=== PATIENT | female | born 1970 | race Caucasian/White ===

== ENCOUNTER → 2018-03-13 08:22 | Outpatient (CLI) | payer BC, SELFPAY ==
--- NOTE | 2018-03-13 08:29 | RAD_ITS ---
STUDY: X-RAY - LEFT TIBIA AND FIBULA REASON FOR EXAM: Female, 47 years old. History of injury. TECHNIQUE: AP and lateral view(s) of the tibia and fibula were obtained. COMPARISON: None. FINDINGS: Normal visualized tibia. Normal visualized fibula. The soft tissue structures are unremarkable. RAD/Tibia & Fibula 2 Views IMPRESSION: Normal x-ray examination of the tibia and fibula. Electronically Signed: Aurelio Whitehead MD at 10:39 EDT Tel [phone], Service support ,
--- NOTE | 2018-03-13 08:29 | RAD_ITS ---
STUDY: X-RAY - LEFT ANKLE REASON FOR EXAM: Female, 47 years old. INJURY MONTH AGO, NO PAIN UNLESS PALPIATED AROUND ANKLE TECHNIQUE: 3 view(s) of the ankle. COMPARISON: None. FINDINGS: Normal visualized distal tibia and fibula. Normal medial and lateral malleoli. Normal tibiotalar articulation and ankle mortise. Normal visualized talus and calcaneus. The visualized subtalar, talonavicular, calcaneocuboid and tarsal articulations are normal. The soft tissue structures are unremarkable. RAD/Ankle min 3 Views IMPRESSION: Normal x-ray examination of the ankle. Electronically Signed: Severo Carrillo MD at 16:52 EDT , Service support ,
== END ==
PROVIDERS: Family Provider Internal Medicine; PCP Internal Medicine; Visit Provider Internal Medicine
DX: M25.572 Pain in left ankle and joints of left foot (principal); W19.XXXA Unspecified fall, initial encounter; Y93.9 Activity, unspecified; Y92.9 Unspecified place or not applicable; Y99.9 Unspecified external cause status
CPT/HCPCS: 73590; 73610

== ENCOUNTER → 2018-09-12 16:40 | Outpatient (CLI) | payer BC, SELFPAY ==
[2018-09-17 15:55] LABS: HPV Reflexed? NOT INDICATED
== END ==
PROVIDERS: Family Provider Internal Medicine; PCP Internal Medicine; Visit Provider Obstetrics & Gynecology
DX: Z12.4 Encounter for screening for malignant neoplasm of cervix (principal)
CPT/HCPCS: 88175; G0145

== ENCOUNTER → 2019-01-08 10:54 | Outpatient (CLI) | payer BC, SELFPAY ==
--- NOTE | 2019-01-08 10:59 | VDLE_ITS ---
Reason For Study: LEG PAIN RIGHT LEFT CFV is compressible, spontaneous, phasic, GSV is normal. competent and demonstrates normal CFV is compressible, spontaneous, phasic, augmentation. competent, and demonstrates normal Procedure augmentation. Exam performed in department. FV is compressible, spontaneous, phasic, A preliminary report was called and/or faxed competent and demonstrates normal to Dr. Wiseman. augmentation. POP V is compressible, spontaneous, phasic, competent and demonstrates normal augmentation. T/P Trunk is compressible. PTV is compressible. LT PerV is compressible. Interpretation Summary Deep veins of the left lower extremity are patent and compressible segmentally. There is no evidence of left lower extremity deep vein thrombosis. Valvular competence appears intact within the proximal deep venous system on the left . The left greater saphenous vein appears patent and compressible segmentally. Ordering Physician: Brooke Wiseman Referring Physician: Brooke Wiseman Performed By: Carmen Gary RVT
== END ==
PROVIDERS: Family Provider Internal Medicine; PCP Internal Medicine; Referring Provider Internal Medicine; Visit Provider Internal Medicine
DX: M79.605 Pain in left leg (principal)
CPT/HCPCS: 93971

== ENCOUNTER → 2019-04-16 15:18 | Outpatient (CLI) | payer BC, SELFPAY ==
--- NOTE | 2019-04-16 15:21 | BI_ITS ---
MAMMOGRAPHY - BILATERAL SCREENING 3-D TOMOSYNTHESIS REASON FOR EXAM: Female, 48 years old. Bilateral Screening 3-D tomosynthesis PERTINENT HISTORY: No significant family history. TECHNIQUE: 2-D mammograms and 3-D Tomosynthesis of the breast (s) were performed. CAD was performed. COMPARISON: November 06, 2017, August 10, 2016 FINDINGS: The breast composition is almost entirely fat. Scattered benign calcifications are seen. No dense spiculated masses or suspicious microcalcifications are identified. No architectural distortion is identified. There is no skin thickening or retraction. There are stable lymph nodes. There has been no significant change since the prior study. BI/SCREEN MAMM (CAD) W/GORDO BILAT IMPRESSION: No mammographic signs of malignancy. Routine yearly mammograms recommended. ASSESSMENT CATEGORY: BIRADS Category 2: Benign. A letter regarding these results will be sent to the patient by the facility within 30 days. FOLLOW UP RECOMMENDATION: Yearly follow up mammogram recommended. (A) Approximately 10% of breast cancers are not detected by mammography. A normal mammogram should not delay biopsy of a clinically suspicious abnormality. Electronically Signed: Melvin Gallardo MD at 17:48 EDT , Service support ,
--- NOTE | 2019-04-16 15:25 | BD_ITS ---
STUDY: DUAL ENERGY X-RAY ABSORPTIOMETRY / DXA REASON FOR EXAM: Female, 48 years old. Early menopause. TECHNIQUE: Bone Mineral Density (BMD) measurements of lumbar spine and bilateral hips were obtained. COMPARISON: Comparison is made with prior study dated August 10, 2016. FINDINGS: Lumbar Spine (L1-L4): g/cm2 (0.983) / T-score (-1.6) / Z-score (-1.4) Findings are suggestive of osteopenia with a moderate fracture risk. Left Femur Total: g/cm2 (0.864) / T-score (-1.1) / Z-score (-0.8) Left Femoral Neck: g/cm2 (0.850) / T-score (-1.4) / Z-score (-0.7) Right Femur Total: g/cm2 (0.863) / T-score (-1.1) / Z-score (-0.8) Right Femoral Neck: g/cm2 (0.810) / T-score (-1.6) / Z-score (-1.0) The T-Scores on the most recent prior examination were: Lumbar Spine (L1-L4): There has been worsening of bone density since the previous examination. Left Femur Total: which represents a worsening of 0.1%. Right Femur Total: which represents an improvement of 1.1%. BD/Dexa Bone Density Study IMPRESSION: The patient is considered osteopenic as outlined below according to World Alexandre Organization (WHO) criteria with a moderate fracture risk. There has been worsening of bone density since the previous examination. Reference Information: The T-score is the number of standard deviations above or below the standard which is normal for young adults at their peak bone mineral density. The World Health Organization (WHO) interprets the T-scores as follows: Above -1 Normal bone density Between -1 and -2.5 Osteopenia Equal to / or below -2.5 Osteoporosis As a practical clinical guideline, osteopenia may be graded as follows: Mild -1 through -1.5 Moderate -1.6 through -2.0 Severe -2.1 through -2.4 The Z-score is the number of standard deviations above or below age-matched controls. A Z-score of less than -1.5 would be considered abnormal. References: 1. NIH Osteoporosis and Related Bone Diseases http://www.osteo.org 2. International Society for Clinical Densitometry http://www.iscd.org 3. National Osteoporosis Foundation http://www.nof.org Electronically Signed: Aurelio Whitehead, at 10:57 EDT , Service support ,
== END ==
PROVIDERS: Family Provider Internal Medicine; PCP Internal Medicine; Referring Provider Internal Medicine; Visit Provider Internal Medicine
DX: Z12.31 Encounter for screening mammogram for malignant neoplasm of breast (principal); Z78.0 Asymptomatic menopausal state
CPT/HCPCS: 77063; 77067; 77080

== ENCOUNTER → 2019-12-05 | Outpatient (CLI) | payer OTHER, SELFPAY ==
[2019-12-05 11:09] LABS: Hematocrit 44.6 % (37-47); Hemoglobin 14.9 g/dL (12.0-15.0); Mean Corp Hgb Conc 33.4 g/dL (32-36); Mean Corpuscular Volume 95.7 fL (81-99); Mean Platelet Vol. 9.5 fl (6.2-12.0); Platelet Count 274 K/mm3 (150-450); RBC Distribution Width CV 11.8 % (11.6-14.6); RBC Distribution Width SD 41.2 fl (35.1-43.9); Red Blood Count 4.66 M/mm3 (4.2-5.4); White Blood Count 6.9 K/mm3 (4.4-11.0)
[2019-12-05 11:18] LABS: Erythrocyte Sedimentation Rate < 1 mm/hr (0-20)
[2019-12-05 11:29] LABS: ALB/GLOB Ratio 1.4 RATIO (0.9-2.4); AST(SGOT) 15 U/L (15-37); Alanine Aminotransfer ALT/SGPT 26 U/L (13-56); Albumin, Serum 4.1 g/dL (3.2-5.0); Alkaline Phosphatase 83 U/L (45-117); Anion Gap 4 (5-15); BUN 12 mg/dL (7-18); CPK Total, Creatine Kinase 112 U/L (26-192); Chloride 107 mmol/L (98-107); Creatinine, Serum 0.86 mg/dL (0.55-1.02); EST Glomerular Filtration Rate 75 mL/min (>60); Est Glom Filt Rate - Afr Amer 91 mL/min (>60); Globulin 2.9 g/dL (2.2-4.2); Glucose 72 mg/dL (74-106); Potassium 4.2 mmol/L (3.5-5.1); Sodium Level 141 mmol/L (136-145)
== END | disposition home or self-care (01) ==
LOC: LABSPEC 10:57
PROVIDERS: PCP Internal Medicine; Referring Provider Internal Medicine; Visit Provider Internal Medicine
DX: R07.89 Other chest pain (principal)
CPT/HCPCS: 80053; 82550; 84484; 85027; 85652

== ENCOUNTER → 2020-05-12 16:02 | Outpatient (CLI) | payer OTHER, SELFPAY ==
--- NOTE | 2020-05-12 16:03 | BI_ITS ---
MAMMOGRAPHY - BILATERAL SCREENING 3-D TOMOSYNTHESIS REASON FOR EXAM: Female, 49 years old. Routine screening PERTINENT HISTORY: NO FAM HX -- NO CHILDREN -- NO SX. TECHNIQUE: 2-D mammograms and 3-D Tomosynthesis of the breast (s) were performed. CAD was performed. COMPARISON: 04/16/2019 FINDINGS: The breast composition is composed of scattered fibroglandular density. Scattered benign calcifications are seen. No dense spiculated masses or suspicious microcalcifications are identified. No architectural distortion is identified. There is no skin thickening or retraction. There has been no significant change since the prior study. BI/SCREEN MAMM (CAD) W/GORDO BILAT IMPRESSION: No mammographic signs of malignancy. Routine yearly mammograms recommended. ASSESSMENT CATEGORY: BIRADS Category 1: Negative. A letter regarding these results will be sent to the patient by the facility within 30 days. FOLLOW UP RECOMMENDATION: Yearly follow up mammogram recommended. (A) Approximately 10% of breast cancers are not detected by mammography. A normal mammogram should not delay biopsy of a clinically suspicious abnormality. Electronically Signed: Dontrell Marks MD at 7:56 EDT , Service support ,
== END ==
PROVIDERS: PCP Internal Medicine; Referring Provider Internal Medicine; Visit Provider Internal Medicine
DX: Z12.31 Encounter for screening mammogram for malignant neoplasm of breast (principal)
CPT/HCPCS: 77063; 77067

== ENCOUNTER → 2021-05-05 11:05 | Outpatient (CLI) | payer OTHER, SELFPAY ==
--- NOTE | 2021-05-05 11:10 | VDLE_ITS ---
Reason For Study: pain Procedure LEFT This is a venous duplex using B-mode, color GSV is normal. flow and spectral Doppler. CFV is compressible, spontaneous, phasic, Exam performed in department. competent, and demonstrates normal The exam was abbreviated due to the COVID 19 augmentation. protocol. FV is compressible, spontaneous, phasic, The exam was diagnostic. competent and demonstrates normal A preliminary report was called and/or faxed augmentation. to Dr. Wiseman. POP V is compressible, spontaneous, phasic, competent and demonstrates normal augmentation. T/P Trunk is compressible. PTV is compressible. LT PerV is compressible. VL/Venous Duplex US, Unilateral Interpretation Summary Deep veins of the left lower extremity are patent and compressible segmentally. There is no evidence of left lower extremity deep vein thrombosis. Valvular competence appears intac t within the proximal deep venous system on the left . The left great saphenous vein appears patent a nd compressible segmentally. Ordering Physician: Brooke Wiseman Performed By: Luiz Bhatt RVT
== END ==
PROVIDERS: PCP Internal Medicine; Referring Provider Internal Medicine; Visit Provider Internal Medicine
DX: M79.605 Pain in left leg (principal)
CPT/HCPCS: 93971

== ENCOUNTER → 2021-05-14 07:59 | Outpatient (CLI) | payer OTHER, SELFPAY ==
--- NOTE | 2021-05-14 08:02 | BI_ITS ---
MAMMOGRAPHY - BILATERAL SCREENING REASON FOR EXAM: Female, 50 years old. Routine annual screening examination. PERTINENT HISTORY: Non-contributory. TECHNIQUE: Digital bilateral breast gordo (3D mammographic acquisition) in the CC and MLO projections. 2-D mediolateral oblique (MLO) and craniocaudad (CC) views of both breasts were obtained. CAD: Full Field Digital Mammography with Computer Added Detection was performed. COMPARISON: Comparison is made with prior study 05/12/2020 and 04/16/2019. FINDINGS: Breast Composition: The breasts are heterogeneously dense, which may obscure small masses. There are no dominant masses or suspicious calcifications. Stable small benign appearing bilateral axillary vessels. No other significant abnormalities are identified. There has been no significant change since the prior study. BI/SCRN MAMM (CAD)W/GORDO BILAT IMPRESSION: Stable bilateral screening mammogram. Yearly follow-up mammogram recommended. (A) ASSESSMENT CATEGORY: BIRADS Category 2: Benign. A letter regarding these results will be sent to the patient by the facility within 30 days. Approximately 10% of breast cancers are not detected by mammography. A normal mammogram should not delay biopsy of a clinically suspicious abnormality. [id number] Electronically Signed: Aurelio Whitehead MD at 8:55 EDT , Service support ,
== END ==
PROVIDERS: PCP Internal Medicine; Referring Provider Internal Medicine; Visit Provider Internal Medicine
DX: Z12.31 Encounter for screening mammogram for malignant neoplasm of breast (principal)
CPT/HCPCS: 77063; 77067

== ENCOUNTER → 2021-06-02 06:36 | Outpatient (CLI) | payer OTHER, SELFPAY ==
--- NOTE | 2021-06-02 08:50 | NEURO ---
NCS and/or EMG Patient Report Ordering Doctor: Brooke Wiseman DATE OF SERVICE: 06/02/21 Isabel Guidry presents For electrodiagnostic testing of the right upper and lower extremity. She reports back pain and lateral right thigh numbness.She reports intermittent numbness in the right arm. Electrodiagnostic findings: Right median motor nerve demonstrates normal distal latency, amplitude and conduction velocity. Normal right ulnar motor response. Normal right common peroneal and right tibial motor response. Normal sensory responses in the Right upper limb.Normal right sural and superficial peroneal responses. Prolonged latency noted in the right lateral femoral cutaneous nerve. On needle EMG, all muscles tested in the right upper and right lower limb showed no evidence of denervation with normal motor unit action potentials.No denervation was noted in the right lumbar paraspinals Electrodiagnostic impression:This is an abnormal study. 1. Electrodiagnostic findings demonstrate slowing in the right lateral femoral cutaneous nerve. This is consistent with a right meralgia paresthetica. 2. No electrodiagnostic evidence is noted for lumbosacral radiculopathy. 3. No electrodiagnostic evidence noted for neuropathy in the right upper limb, including carpal tunnel syndrome.
== END ==
PROVIDERS: PCP Internal Medicine; Referring Provider Internal Medicine; Visit Provider Internal Medicine
DX: R20.0 Anesthesia of skin (principal); R20.2 Paresthesia of skin
CPT/HCPCS: 95886; 95913

== ENCOUNTER 2021-10-28 08:22 | Outpatient (CLI) | payer OTHER, SELFPAY ==
--- NOTE | 2021-10-28 08:28 | BD_ITS ---
STUDY: DUAL ENERGY X-RAY ABSORPTIOMETRY / DXA REASON FOR EXAM: Female, 50 years old. Z780. Patient is postmenopausal. TECHNIQUE: Bone Mineral Density (BMD) measurements of lumbar spine and bilateral hips were obtained. COMPARISON: Comparison is made with prior study dated 04/16/2019. FINDINGS: Lumbar Spine (L1-L4): g/cm2 (0.944) / T-score (-0.9) / Z-score (-0.3) Findings are suggestive of normal bone density with a low fracture risk. Left Femur Total: g/cm2 (0.853) / T-score (-0.7) / Z-score (-0.3) Left Femoral Neck: g/cm2 (0.699) / T-score (-1.4) / Z-score (-0.7) Right Femur Total: g/cm2 (0.827) / T-score (-0.9) / Z-score (-0.5) Right Femoral Neck: g/cm2 (0.690) / T-score (-1.4) / Z-score (-0.8) The T-Scores on the most recent prior examination were: Lumbar Spine (L1-L4): There has been improvement of bone density since the previous examination. Left Femur Total: which represents an improvement of 6.5%. Right Femur Total: which represents an improvement of 3.2%. BD/Dexa Bone Density Study IMPRESSION: The patient is considered osteopenic as outlined below according to World Alexandre Organization (WHO) criteria with a low fracture risk. There has been improvement of bone density since the previous examination. Reference Information: The T-score is the number of standard deviations above or below the standard which is normal for young adults at their peak bone mineral density. The World Health Organization (WHO) interprets the T-scores as follows: Above -1 Normal bone density Between -1 and -2.5 Osteopenia Equal to / or below -2.5 Osteoporosis As a practical clinical guideline, osteopenia may be graded as follows: Mild -1 through -1.5 Moderate -1.6 through -2.0 Severe -2.1 through -2.4 The Z-score is the number of standard deviations above or below age-matched controls. A Z-score of less than -1.5 would be considered abnormal. References: 1. NIH Osteoporosis and Related Bone Diseases www osteo.org 2. International Society for Clinical Densitometry www iscd.org 3. National Osteoporosis Foundation www nof.org Electronically Signed: Aurelio Whitehead MD at 10:05 EST , Service support ,
== END 2021-10-28 23:59 | disposition short-term general hospital (02) ==
LOC: OPBD 08:24
PROVIDERS: PCP Internal Medicine; Visit Provider Internal Medicine
DX: Z78.0 Asymptomatic menopausal state (principal)
CPT/HCPCS: 77080

== ENCOUNTER → 2022-07-12 | Outpatient (CLI) | payer OTHER, SELFPAY ==
--- NOTE | 2022-07-12 15:12 | BI_ITS ---
MAMMOGRAPHY - BILATERAL SCREENING 3-D TOMOSYNTHESIS REASON FOR EXAM: Female, 51 years old. SCREENING PERTINENT HISTORY: No significant family history. TECHNIQUE: 2-D mammograms and 3-D Tomosynthesis of the breast (s) were performed. CAD was performed. COMPARISON: 05/14/2021 FINDINGS: The breast composition is heterogeneously dense that can obscure small breast masses. Scattered benign calcifications are seen. No dense spiculated masses or suspicious microcalcifications are identified. No architectural distortion is identified. There is no skin thickening or retraction. There has been no significant change since the prior study. BI/SCRN MAMM (CAD)W/GORDO BILAT IMPRESSION: No mammographic signs of malignancy. Routine yearly mammograms recommended. ASSESSMENT CATEGORY: BIRADS Category 1: Negative. A letter regarding these results will be sent to the patient by the facility within 30 days. FOLLOW UP RECOMMENDATION: Yearly follow up mammogram recommended. (A) Approximately 10% of breast cancers are not detected by mammography. A normal mammogram should not delay biopsy of a clinically suspicious abnormality. Electronically Signed: Morales Trujillo MD at 16:38 EDT ,
== END | disposition home or self-care (01) ==
LOC: OPBI 15:10
PROVIDERS: PCP Internal Medicine; Visit Provider Internal Medicine
DX: Z12.31 Encounter for screening mammogram for malignant neoplasm of breast (principal)
CPT/HCPCS: 77063; 77067

== ENCOUNTER → 2023-09-08 | Outpatient (CLI) | payer OTHER, SELFPAY ==
--- NOTE | 2023-09-08 15:19 | BI_ITS ---
MAMMOGRAPHY - BILATERAL SCREENING 3-D TOMOSYNTHESIS REASON FOR EXAM: Female, 52 years old. screening PERTINENT HISTORY: No significant family history. TECHNIQUE: 2-D mammograms and 3-D Tomosynthesis of the breast (s) were performed. CAD was performed. COMPARISON: 07/12/2022 FINDINGS: The breast composition is composed of scattered fibroglandular density. Scattered benign calcifications are seen. No dense spiculated masses or suspicious microcalcifications are identified. No architectural distortion is identified. There is no skin thickening or retraction. There has been no significant change since the prior study. BI/SCRN MAMM (CAD)W/GORDO BILAT IMPRESSION: No mammographic signs of malignancy. Routine yearly mammograms recommended. ASSESSMENT CATEGORY: BIRADS Category 1: Negative. A letter regarding these results will be sent to the patient by the facility within 30 days. FOLLOW UP RECOMMENDATION: Yearly follow up mammogram recommended. (A) Approximately 10% of breast cancers are not detected by mammography. A normal mammogram should not delay biopsy of a clinically suspicious abnormality. Electronically Signed: Morales Trujillo MD at 9:08 EST ,
== END | disposition home or self-care (01) ==
LOC: OPBI 15:17
PROVIDERS: PCP Internal Medicine; Referring Provider Internal Medicine; Visit Provider Internal Medicine
DX: Z12.31 Encounter for screening mammogram for malignant neoplasm of breast (principal)
CPT/HCPCS: 77063; 77067

== ENCOUNTER → 2024-02-01 | Outpatient (CLI) | payer OTHER, SELFPAY ==
--- NOTE | 2024-02-01 13:17 | BD_ITS ---
STUDY: DUAL ENERGY X-RAY ABSORPTIOMETRY / DXA REASON FOR EXAM: Female, 53 years old. Z780 TECHNIQUE: Bone Mineral Density (BMD) measurements of lumbar spine and bilateral hips were obtained. COMPARISON: Comparison is made with prior study dated October 28, 2021. FINDINGS: Lumbar Spine (L1-L4): g/cm2 (0.848) / T-score (-1.5) / Z-score (-0.8) Findings are suggestive of osteopenia with a low fracture risk. Left Femur Total: g/cm2 (0.795) / T-score (-1.2) / Z-score (-0.7) Left Femoral Neck: g/cm2 (0.733) / T-score (-1.0) / Z-score (-0.2) Right Femur Total: g/cm2 (0.794) / T-score (-1.2) / Z-score (-0.7) Right Femoral Neck: g/cm2 (0.731) / T-score (-1.1) / Z-score (-0.3) The T-Scores on the most recent prior examination were: Lumbar Spine (L1-L4): There has been worsening of bone density since the previous examination. Left Femur Total: which represents a worsening of 6.8%. Right Femur Total: which represents a worsening of 4%. BD/Dexa Bone Density Study IMPRESSION: The patient is considered osteopenic as outlined below according to World Alexandre Organization (WHO) criteria with a low fracture risk. There has been worsening of bone density since the previous examination. Reference Information: The T-score is the number of standard deviations above or below the standard which is normal for young adults at their peak bone mineral density. The World Health Organization (WHO) interprets the T-scores as follows: Above -1 Normal bone density Between -1 and -2.5 Osteopenia Equal to / or below -2.5 Osteoporosis As a practical clinical guideline, osteopenia may be graded as follows: Mild -1 through -1.5 Moderate -1.6 through -2.0 Severe -2.1 through -2.4 The Z-score is the number of standard deviations above or below age-matched controls. A Z-score of less than -1.5 would be considered abnormal. References: 1. NIH Osteoporosis and Related Bone Diseases www osteo.org 2. International Society for Clinical Densitometry www iscd.org 3. National Osteoporosis Foundation www nof.org Electronically Signed: Aurelio Whitehead MD at 12:21 EDT ,
== END | disposition home or self-care (01) ==
LOC: OPBD 13:15
PROVIDERS: PCP Internal Medicine; Referring Provider Internal Medicine; Visit Provider Internal Medicine
DX: Z78.0 Asymptomatic menopausal state (principal)
CPT/HCPCS: 77080

== ENCOUNTER → 2024-06-26 | Outpatient (CLI) | payer OTHER, SELFPAY ==
--- NOTE | 2024-06-26 14:22 | NEURO ---
NCS and/or EMG Patient Report Ordering Doctor: Brooke Wiseman DATE OF SERVICE: 06/26/24 Isabel presents with complaints of numbness and tingling in the left hand. She reports weakness in the left arm and intermittent neck pain. Electrodiagnostic findings: Left median motor nerve demonstrates normal distal latency, amplitude and conduction velocity. Normal left ulnar motor response. Normal left median and ulnar F?waves. Sensory responses are within normal limits. Needle EMG testing was performed in the left upper limb. 1+ fibrillations noted in the left flexor carpi ulnaris, left triceps and left lower cervical paraspinals. Motor unit action potentials are of normal amplitude and duration. Electrodiagnostic impression: This is an abnormal study in the left upper limb. 1. Electrodiagnostic findings suggestive of acute left C7 radiculopathy. Consider correlation with cervical spine imaging to evaluate for disk herniation or stenosis. 2. There is no electrodiagnostic evidence for peripheral neuropathy, including carpal tunnel syndrome. Multi Select Codes Neurology Neurology Interp Codes: 90892-58 Musc test done w/n test comp (interp) and 70898-45 Nrv cndj test 7-8 studies (interp)
== END | disposition home or self-care (01) ==
LOC: PSN 13:24
PROVIDERS: PCP Internal Medicine; Referring Provider Internal Medicine; Visit Provider Internal Medicine
DX: M79.642 Pain in left hand (principal)
CPT/HCPCS: 95886; 95910

== ENCOUNTER → 2024-08-05 | Outpatient (CLI) | payer OTHER, SELFPAY ==
--- NOTE | 2024-08-05 08:18 | MRI_ITS ---
STUDY: MRI CERVICAL SPINE WITHOUT CONTRAST REASON FOR EXAM: Female, 53 years old. Cervical radiculopathy with left arm numbness and weakness. TECHNIQUE: Standardized fat and water weighted pulse sequences were obtained in the sagittal and axial planes. COMPARISON: Cervical spine radiographs 05/17/2024. FINDINGS: Normal foramen magnum and brainstem-cervical cord junction. Normal craniovertebral junction. Normal anterior atlantoaxial articulation. Normal odontoid process. Straightening of the C-spine curvature. Normal vertebral bodies and posterior osseous elements. C2-3: Normal endplates. Normal disc height. Minimal degenerative anterolisthesis of C2 and C3 is unchanged. Normal central canal and intervertebral neuroforamina. C3-4: Normal endplates. Moderate disc space height narrowing. Mild ventral extradural defect due to posterior marginal spur. Normal central canal. Mild stenosis of the intervertebral neuroforamina due to osteophytes arising from the uncovertebral joints. C4-5: Normal endplates. Moderate disc space height narrowing. Pronounced stenosis of the left intervertebral neuroforamen due to prominent osteophyte arising from the left uncovertebral joint. Normal central canal and right intervertebral neuroforamen. C5-6: Normal endplates. Moderate disc space height narrowing. Mild ventral extradural defect due to posterior marginal spur. Moderate stenosis of the left intervertebral neuroforamen due to osteophyte arising from the left uncovertebral joint. Normal central canal and right intervertebral neuroforamen. C6-7: Normal endplates. Moderate disc space height narrowing. Mild ventral extra dural defect due to posterior marginal spur. Normal central canal and right intervertebral neuroforamen. Mild stenosis of the left intervertebral neuroforamen. C7-T1: Normal endplates. Mild disc space height narrowing. Mild ventral extradural defect due to posterior marginal spur. Normal central canal and intervertebral neuroforamina. T1-T2: Normal endplates. Normal disc height, signal and morphology. Normal central canal and intervertebral neuroforamina. T2-T3: Normal endplates. Normal disc height, signal and morphology. Normal central canal and intervertebral neuroforamina. T3-T4 and T4-5: (Sagittal only). Normal endplates. Normal disc height, signal and morphology. Normal central canal and intervertebral neuroforamina. Normal cervical cord. Normal upper thoracic spinal cord. Normal included portions of the midline brainstem and cerebellum. Normal visualized soft tissue structures. MRI/Spine Cervical (Routine) IMPRESSION: 1. Pronounced stenosis of the left C4-C5 intervertebral neuroforamen due to prominent osteophyte arising from the left uncovertebral joint. 2. Moderate stenosis of the left C5-C6 intervertebral neuroforamen due to prominent osteophyte arising from the left uncovertebral joint. 3. Mild stenosis of the left C6-C7 intervertebral neuroforamen due to small osteophyte arising from the left uncovertebral joint. 4. No MRI evidence of cervical extruded disc fragment. 5. Normal cervical spinal cord. Electronically Signed: Timi Bermeo MD at 10:05 EDT ,
== END | disposition home or self-care (01) ==
PROVIDERS: PCP Internal Medicine; Referring Provider Internal Medicine; Visit Provider Internal Medicine
DX: M54.12 Radiculopathy, cervical region (principal)
CPT/HCPCS: 72141

== ENCOUNTER → 2024-10-11 | Outpatient (CLI) | payer OTHER, SELFPAY ==
--- NOTE | 2024-10-11 13:25 | BI_ITS ---
MAMMOGRAPHY - BILATERAL SCREENING REASON FOR EXAM: Female, 53 years old. Routine annual screening examination. PERTINENT HISTORY: Non-contributory. TECHNIQUE: Digital bilateral breast gordo (3D mammographic acquisition) in the CC and MLO projections. 2-D mediolateral oblique (MLO) and craniocaudad (CC) views of both breasts were obtained. CAD: Full Field Digital Mammography with Computer Added Detection was performed. COMPARISON: Comparison is made with prior study dated September 08, 2023 and July 12, 2022. FINDINGS: Breast Composition: There are scattered areas of fibroglandular density. There are no dominant masses or suspicious calcifications. No other significant abnormalities are identified. There has been no significant change since the prior study. BI/SCRN MAMM (CAD)W/GORDO BILAT IMPRESSION: Stable bilateral screening mammogram. Yearly follow-up mammogram recommended. (A) ASSESSMENT CATEGORY: BIRADS Category 1: Negative. A letter regarding these results will be sent to the patient by the facility within 30 days. Approximately 10% of breast cancers are not detected by mammography. A normal mammogram should not delay biopsy of a clinically suspicious abnormality. [id number] Electronically Signed: Aurelio Whitehead MD at 14:57 EST ,
== END | disposition home or self-care (01) ==
LOC: OPBI 13:23
PROVIDERS: PCP Internal Medicine; Referring Provider Internal Medicine; Visit Provider Internal Medicine
DX: Z12.31 Encounter for screening mammogram for malignant neoplasm of breast (principal)
CPT/HCPCS: 77063; 77067

== ENCOUNTER 2025-01-27 15:00 | Outpatient (RCR) | payer OTHER, SELFPAY ==
--- NOTE | 2024-10-09 16:28 | HP.PTEVAL ---
Patient's Visit Information Visit Information Visit Information: KINGS EDEN is a 53 year old F referred to Physical Therapy by Dr. Brooke Wiseman DO with a diagnosis of cervical radiculopathy. Date of Evaluation: 10/09/24 Physical Therapist: Carl Meng, DPT, OCS, CSCS Visit Plan Frequency: 2x /Week Duration: 4-6 Weeks Plan: 2x/week for 4-6 weeks (after recovery from tummy tuck 10/24/24) for 1. MH and us thermal to L UT knot. 2. Stretch same and manual therapy for cervical traction , r rotation mobs, PROM and progression of exercises for the same. 3. strength neck and postural mm to HEP IE HEP: scap cirlces 10x, cerv ret 10x, R cerv rotation with OP 10x, L UT stretch 30 5x all 2x/day, monitor tingling in L hnad and knot L UT and cervical ROM next session Pt to call upon recovery mid to e October to start sessions when ready. Pt to rhumatologist in meantime regarding hands. Check osteophytes vs disc apthology as causation of tingling, loss ROM in neck. Check tingling, cervical ROM response to ex next session. 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 Back in April had big knot in L scap area nd numbness tingling in L arm after sleeping funny one night. Woke up with big knot and got massages to work it out. L arm eventually got weak to squeeze things or use to put hair in pony tail etc. Allso getting OA in hands and will see a Rhumatologist. Numbness L side is hand and last two digits anteriorly. Got NCT and MRI and they showed nerve damage and stenosis in neck. Not bad neck pain but feels stiff all over. Getting massages and they help. Sleep is OK now on back. Employed as software mostly desk and travel, Able to do job well, uses standing desk. Mixes up position. Hobbies: Walking dogs, working out(ellitpical, with upper body reps, walks alot.) Basic ADLs all I but L hand is bothersome with these. Hard to open little things or snap things. I am here for tingling and strength loss Doc recommended spine doctor but pt wants PT if it can help. Pain neck: Pain Intensity (Out of 10): 0 Pain Intensity Range: 0 and 4 Objective Objective: 63# R and 56# L 75 L c/s rotation, 48 L rotation with firm end feel. 39 ext with stiffness. Posture is forward head and prtracted scapula. 2/3 bi and tricep reflexes B. strength B UE 4/5 without myotomal problems. Sensation deficits are just some mild tingling in L 4/5 digits. Tender to palpation with knots L UT area. repeated motion : protraction [id number] W tingling form 4 to 7/10 repeated retraction: stiff. B slightly Repeated ret/ext. NE Balance/Special Test Scores Oswestry Neck Score: 6 Goals Goal 1:: cervical r rotation to 60 without pain and stiffness neck diminished by 50% Goal Time Frame: 4-6 Weeks Goal 2:: tingling in L hand 90% improved 1/10 at worst and intermittent Goal Time Frame: 4-6 Weeks Goal 3:: I appropriate HEP to limit future problems Goal Time Frame: 4-6 Weeks Rehabilitation Potential Physical Therapy Diagnosis: limited neck ROM, tenderness adn tingling in L hand limiting fucniton Rehabilitation Potential: Fair Anticipated Interventions Patient/Client Instruction: Educate patient on: Condition For the Purpose of:: To decrease pain, To increase ROM, To improve nutrient delivery to tissue, To improve muscle performance and motor function and To increase tolerance to activity/condition/position Therapeutic Exercise to Include: Strength training, Postural training, Flexibilty training, Passive ROM and Active ROM For the Purpose of:: To decrease pain, To increase ROM, To improve nutrient delivery to tissue and To increase tolerance to activity/condition/position Manual Therapy Techniques to Include: Mobilization, Passive ROM and Soft tissue mobilization For the Purpose of:: To decrease pain, To increase ROM and To improve nutrient delivery to tissue Thermo therapy (hot pack): Yes Ultrasound (thermal/non thermal): Yes (L UT thermal) For the Purpose of:: To decrease pain, To increase ROM and To improve nutrient delivery to tissue Text: Thank you for the opportunity to evaluate your patient. For Medicare and Medicare HMO plans, please review the plan of care and approve it. It will need to be FAXED BACK to us at [phone] for Medicare purposes. For Medicare only, by signing this I certify the plan of care. Please let me know if there are questions or concerns regarding this plan of care. Physician Signature: Date:
--- NOTE | 2024-12-19 13:32 | HP.PTREVAL ---
Re-Evaluation Intro: Dr. Brooke Wiseman, DO, It has been my pleasure to treat KINGS EDEN over the last 12 visits for cervical radiculopathy. Please see the progress note below for an update on the physical therapy plan of care! Subjective Subjective: Defintiely feel better. Looser and more mobility. Numbness occasionally at night if sleeps on L side. Pain is much better. 80% better. Will f/u with doctor in January. Fine movements are getting better. Objective Objective/Function: 60 degree rotations 55 ext, much btter. UE AROM WFL Overall much better, Pt hesitant to be done with PT and not overly committing to continue strength at home as she prefers other ex like yoga and elliptical and may not want to commit more money to a gym or not sure she is motivated to do ex at home or in gym after work. Plan Plan Plan: wean therapy. Pt to do strngthening with band at home and consider gym and let us know if it gets easy or neds progressed. Will do 2x/week x1 then 1x/week x 2 then skip a week for a 5 weeek plan of care weaning off PT to HP and stretches ROM. Please focus clinic time on manual therapy and answering questions regarding strngthening progression if neded. Pleae add isometric c/s retraction to HEP. Balance/Gait/Functional tests Balance/Special Test Scores Oswestry Neck Score: 4 Goals Goals Goal 1:: cervical r rotation to 60 without pain and stiffness neck diminished by 50% Goal Time Frame: 4-6 Weeks Goal Progress: Goal Met Goal 2:: tingling in L hand 90% improved 1/10 at worst and intermittent Goal Time Frame: 4-6 Weeks Goal Progress: Progressing Goal 3:: I appropriate HEP to limit future problems Goal Time Frame: 4-6 Weeks Goal Progress: Goal Met Goal 4:: Wean off of therapy whilst keep 60 rotation and 55 xt in c/s and numb ness /pain continue to improve to 90% better overall subjectively. Goal Time Frame: 4-6 Weeks Goal Progress: NEW GOAL Anticipated Interventions Anticipated Interventions Patient/Client Instruction: Educate patient on: Condition For the Purpose of:: To decrease pain, To increase ROM, To improve nutrient delivery to tissue, To improve muscle performance and motor function and To increase tolerance to activity/condition/position Therapeutic Exercise to Include: Strength training, Postural training, Flexibilty training, Passive ROM and Active ROM For the Purpose of:: To decrease pain, To increase ROM, To improve nutrient delivery to tissue and To increase tolerance to activity/condition/position Manual Therapy Techniques to Include: Mobilization, Passive ROM and Soft tissue mobilization For the Purpose of:: To decrease pain, To increase ROM and To improve nutrient delivery to tissue Thermo therapy (hot pack): Yes Ultrasound (thermal/non thermal): Yes (L UT thermal) For the Purpose of:: To decrease pain, To increase ROM and To improve nutrient delivery to tissue Re-Evaluation Ending Re-evaluation ending: Please do not hesitate to contact me at [phone] by phone or if you have questions or concerns regarding this new plan of care! Sincerely, Carl Meng, DPT, OCS, CSCS
--- NOTE | 2025-01-27 15:57 | HP.PTDCSUM ---
Discharge Summary D/C summary: It has been my pleasure to treat KINGS EDEN referred by Dr. Brooke Wiseman DO, with the diagnosis of cervical radiculopathy for a total of 17 visit(s). Discharge Date: 01/27/25 Please see the following information for a summary of their discharge status. Subjective Subjective: Doing well, had a set back last week travelling and falling asleep on the airplane. Avoids leaning on L arm on chair and that helps. Has OA in neck, x rays show it throughout body. On celebrex now and [facility] for widespread pain and pain/OP. Doing Yoga at home and elliptical. Pain neck: Pain Intensity (Out of 10): 0 Overall Improvement % Improvement: 75 Objective Objective/Function: 67 B rotation with just tightness, 75 xtension without pain. 65# L and 68# R shuttle repairer. Sitting with good posture and no pain at rest today. Stagnant with % bettere adn still has to manage pain expectedly. Goals Goal 1:: cervical r rotation to 60 without pain and stiffness neck diminished by 50% Goal Progress: Goal Met Goal 2:: tingling in L hand 90% improved 1/10 at worst and intermittent Goal Progress: Goal Met Goal 3:: I appropriate HEP to limit future problems Goal Progress: Goal Met Goal 4:: Wean off of therapy whilst keep 60 rotation and 55 xt in c/s and numb ness /pain continue to improve to 90% better overall subjectively. Goal Progress: ROM is good, not 90% Plan Plan: d/c to HEP and to doctor in February and women's specialist in 2 days. may benefit from see CHT for hand arthirtis which is evident with minor deformities in hands today particularly thumb. D/C Information Discharge Comments: pt tp manage via HP at home and activitiy modification. Will go to [facility] later in week regarding widespread OA and OP. Should consider spine doctor if pain returns to previous level. d/c sentence: If there are questions or concerns regarding this patient's physical therapy, please feel free to call me at [phone]. Thank you for the referral of this patient. Sincerely, Carl Meng, DPT, OCS, CSCS Balance/Gait/Functional tests Balance/Special Test Scores Oswestry Neck Score: 6 Improvement % Improvement: 75
== END 2025-01-27 19:00 | disposition home or self-care (01) ==
LOC: PT 15:00
PROVIDERS: PCP Internal Medicine; Referring Provider Internal Medicine; Visit Provider Internal Medicine
DX: M19.90 Unspecified osteoarthritis, unspecified site (principal); M54.12 Radiculopathy, cervical region
CPT/HCPCS: 97110; 97140; 97162; 97164; 97530

== ENCOUNTER 2025-02-09 09:42 | Emergency (ER) | payer OTHER, SELFPAY ==
[2025-02-09 09:43] VITALS: BP 97/58; PULSE 67; RESP 16; TEMP 36.8; O2SAT 100; BMI 19.7
--- NOTE | 2025-02-09 09:59 | EX.ED.DYSGE1 ---
HPI History of Present Illness Chief Complaint: Ear Problem Detail of Chief Complaint: Blood from left ear Informant: patient Onset/Context/Timing Onset: Today Context: Sudden Onset Timing: Continuous Quality: Blood from left ear Location: Left ear Current Severity: Mild Maximum Severity: Mild Worsened by: Trauma from rubbing or using Q-tip Relieved by: Not applicable Associated Symptoms Associated Symptoms: History of psoriasis. Has not been applying cream as instructed by her ashley Narrative Narrative: Patient is a 54-year-old woman. She has history of psoriasis. She has psoriasis external auditory canal left ear. She has recently been using a Q-tip and itching/rubbing her ear because of severe itching. This morning when she awoke she had significant mount of blood on the pillow. She states she may have rubbed her ear while asleep. She denies muffled hearing. She denies vertigo. She has no other complaints. Prior similar symptoms: No Recent Illness/Hospitalization: No PFSH PFSH Medical History Exacerbation of psoriasis Allergy/AdvReac Type Severity Reaction Status Date / Time minocycline Allergy Mild Hives Verified 02/09/25 09:42 Social History (Updated 02/09/25 @ 10:[address] Derrick Grant MD) household members: spouse ROS ROS ED Constitutional Constitutional ED: Denies chills, fever(s), subjective or sweats ENT ENT ED: Reports other Details: Per HPI narrative ; Denies ear pain, rhinorrhea or sore throat Hematologic/Lymphatic Hematologic/Lymphatic: Reports systems reviewed and no addt'l complaints, except as documented; Denies easy bleeding or easy bruising EXAM Physical Exam Const Vital Signs: 02/09/25 09:43 Temperature 98.2 F Temperature Source Oral Pulse Rate 67 Respiratory Rate 16 Blood Pressure 97/58 L Blood Pressure Mean 71 Pulse Ox 100 Oxygen Delivery Method Room Air Positive well nourished and well developed General Appearance ED: well developed and NAD HEENT Reports moist mucous membranes HEENT Narrative: Patient is noted to have blood left ear and what appears to be blood from the external auditory canal. Initially when I reviewed the left ear there was concern for possible perforation or infection. Unable to see the inferior portion of the TM. There was significant mount of blood in the external auditory canal. This was removed using a Q-tip generally. On reexamination the TM is normal landmarks are noted. Her bleeding is from the external auditory canal. Eyes PERRL and EOMs intact bilaterally General Eye ED: Negative for pale conjunctiva or scleral icterus Neck no lymphadenopathy, supple and no JVD Resp normal respiratory effort Neuro oriented x3 and CN's II-XII intact bilaterally Sensorium / Orientation: alert Psych mental status grossly normal MDM MDM MDM Narrative Medical decision making narrative: Blood from left external auditory canal. There is slight red blood noted. Most of the blood is dried. Patient was informed she use the steroid cream that she was prescribed by her tipple worker. She should not use a Q-tip or rub the ear. There is no restrictions. Treatment and Re-Evaluation :: Use the cream prescribed by tipple worker as instructed Discharge Plan Triage Chief Complaint: Ear Problem ED Provider: Derrick Grant Dx/Rx/DC Orders Clinical Impression: Injury of external auditory canal, Psoriasis Primary Care Provider: Brooke Wiseman Referrals: Brooke Wiseman DO [Primary Care Provider] - Activity Restrictions/Additional Instructions: Use the steroid cream as instructed by your tipple worker. Do not scratch, rub or use Q-tip left ear. Print Language: Finnish Disposition Disposition: Home, Self Care
[2025-02-09 10:25] VITALS: BP 97/58; PULSE 67; RESP 16; TEMP 36.8; O2SAT 100
== END 2025-02-09 10:25 | disposition home or self-care (01) ==
PROVIDERS: Emergency Provider Emergency Medicine; PCP Internal Medicine; Visit Provider Emergency Medicine
DX: L40.9 Psoriasis, unspecified (principal); S09.91XA Unspecified injury of ear, initial encounter; W50.4XXA Accidental scratch by another person, initial encounter
CPT/HCPCS: 99282

== ENCOUNTER → 2025-10-10 | Outpatient (CLI) | payer OTHER, SELFPAY ==
[2025-10-10 12:21] LABS: Hematocrit 45.6 % (37-47); Hemoglobin 14.9 g/dL (12.0-15.0); Immature Granulocytes Count 0.010 X10^3/uL (0.0-0.0); Mean Corp Hgb Conc 32.7 g/dL (32-36); Mean Corpuscular Volume 98.7 fL (81-99); Mean Platelet Vol. 9.7 fl (6.2-12.0); NRBC Flagged by Analyzer 0 % (0-5); Platelet Count 263 K/mm3 (150-450); RBC Distribution Width CV 11.8 % (11.6-14.6); RBC Distribution Width SD 42.6 fl (35.1-43.9); Red Blood Count 4.62 M/mm3 (4.2-5.4); White Blood Count 5.0 K/mm3 (4.4-11.0)
[2025-10-10 12:43] LABS: AST(SGOT) 20 U/L (<=31); Alanine Aminotransfer ALT/SGPT 21 U/L (<=34); Albumin, Serum 4.8 g/dL (3.5-5.0); Alkaline Phosphatase 58 U/L (35-104); Anion Gap 12 (5-15); BUN 15 mg/dL (4-19); BUN/Creat Ratio 17.3 RATIO (10-20); Calcium,Total 9.7 mg/dL (7.6-11.0); Carbon Dioxide 27.8 mmol/L (21.0-32.0); Chloride 103 mmol/L (98-108); Globulin 1.9 g/dL (2.2-4.2); Glucose 79 mg/dL (70-99); Potassium 4.1 mmol/L (3.3-5.1)
== END | disposition home or self-care (01) ==
LOC: LABSPEC 10:24
PROVIDERS: PCP Internal Medicine; Referring Provider Internal Medicine; Visit Provider Internal Medicine
DX: K21.9 Gastro-esophageal reflux disease without esophagitis (principal)
CPT/HCPCS: 80053; 85025

== ENCOUNTER → 2025-10-13 | Outpatient (CLI) | payer OTHER, SELFPAY ==
--- NOTE | 2025-10-13 08:30 | BI_ITS ---
EXAM: SCRN MAMM (CAD)W/GORDO BILAT DATE: 10/13/2025 CLINICAL HISTORY: F, Age 54 y/o , SCRN MAMM (CAD)W/GORDO BILAT DUE AFTER 10/11/2025. Patient has bilateral breast implants. TECHNIQUE: Procedure Code: [id number] Modality: MG Procedure: SCRN MAMM (CAD)W/GORDO BILAT COMPARISON: Prior exam(s) dated 10/11/2024, 09/08/2023, and 07/12/2022. FINDINGS: TISSUE DENSITY: The breasts are heterogeneously dense, which may obscure small masses. Bilateral Breast Mammographic Findings: No suspicious masses, suspicious cluster of microcalcifications, architectural distortion or secondary sign of malignancy is identified in either breast. Benign-appearing round microcalcifications are seen in both breasts. Both breast implants appear to be intact. BI/SCRN MAMM (CAD)W/GORDO BILAT IMPRESSION: Benign screening mammogram OVERALL FINAL ASSESSMENT BI-RADS 2: BENIGN RECOMMENDATION: Routine annual follow-up in 1 Year Additional Recommendation none A letter with findings and recommendations will be mailed to the patient. Reading Location: [id number]
== END | disposition home or self-care (01) ==
LOC: OPBI 08:31
PROVIDERS: PCP Internal Medicine; Referring Provider Internal Medicine; Visit Provider Internal Medicine
DX: Z12.31 Encounter for screening mammogram for malignant neoplasm of breast (principal)
CPT/HCPCS: 77063; 77067

== ENCOUNTER → 2025-10-21 | Outpatient (CLI) | payer OTHER, SELFPAY ==
[2025-10-21 11:03] LABS: Hematocrit 45.7 % (37-47); Hemoglobin 15.3 g/dL (12.0-15.0); Immature Granulocytes Count 0.020 X10^3/uL (0.0-0.0); Mean Corp Hgb Conc 33.5 g/dL (32-36); Mean Corpuscular Volume 96.4 fL (81-99); Mean Platelet Vol. 9.4 fl (6.2-12.0); NRBC Flagged by Analyzer 0 % (0-5); Platelet Count 260 K/mm3 (150-450); RBC Distribution Width CV 11.9 % (11.6-14.6); RBC Distribution Width SD 42.2 fl (35.1-43.9); Red Blood Count 4.74 M/mm3 (4.2-5.4); White Blood Count 5.6 K/mm3 (4.4-11.0)
[2025-10-22 11:08] LABS: SJOGREN'S Anti-SS-A test < 0.2 AI (0.0-0.9); SJOGREN'S Anti-SS-B test < 0.2 AI (0.0-0.9)
== END | disposition home or self-care (01) ==
LOC: CIMLAB 10:09
PROVIDERS: PCP Internal Medicine; Referring Provider Internal Medicine; Visit Provider Internal Medicine
DX: R68.2 Dry mouth, unspecified (principal); E78.49 Other hyperlipidemia
CPT/HCPCS: 36415; 83695; 85025; 86235